=== PATIENT | female | born 1940 | race Caucasian/White ===

== ENCOUNTER 2018-12-22 11:38 | Day surgery (SDC) | payer MEDICARE, OTHER ==
[~2018-12-22] VITALS: Ht 167.6 cm; Wt 64.4 kg
[~2018-12-22 11:38] MED LIST: ADULT LOW DOSE81 MG PO; ATENOLOL25 MG PO; LISINOPRIL5 MG PO; METOPROLOL SUCC25 MG PO
[2018-12-22] MEDS ORDERED: CALCIUM + D SO1 EACH PO (11:59)
--- NOTE | 2018-12-22 14:35 | NUR ---
12/22/18 1435 Richelle London 1425- PT ARRIVES TO PACU AROUSABLE TO VOICE. RESP EVEN AND UNLABORED. OXYGEN SAT HIGH 90'S TO 100% ON 6L VIA MASK. 1426- OXYGEN TITRATED OFF. 1432- PT ROLLS HERSELF TO HER BACK. TOLERATED WELL.
--- NOTE | 2018-12-23 14:56 | PATH ---
[facility] [address] [place], [place] [address] Signed SPECIMEN(S): A RIGHT COLON SPECIMEN(S): B HEPATIC FLEXURE SPECIMEN(S): C SIGMOID POLYPS SPECIMEN SOURCE: A. RIGHT COLON B. HEPATIC FLEXURE C. SIGMOID POLYPS CLINICAL HISTORY: Known hemorrhoidal disease. Polyps 2006. MICROSCOPIC DESCRIPTION: Histologic sections of all submitted blocks are examined by light microscopy. These findings, together with the gross examination, support the pathologic diagnosis. FINAL PATHOLOGIC DIAGNOSIS: A. Mucosa, right colon, biopsy: - Tubular adenoma. B. Mucosa, colon, hepatic flexure, biopsy: - Tubular adenoma. C. Mucosa, sigmoid colon, biopsy: - Hyperplastic polyp. LJA:cml:C2NR GROSS DESCRIPTION: Three specimens are received in three containers, labeled "DB." A. The specimen, labeled "DB, right colon," is received in formalin and consists of three horowitz-white soft tissue fragments each measuring 0.2 cm in greatest dimension. The specimen is entirely submitted in cassette (A1). B. The specimen, labeled "DB, hepatic flexure polyp," is received in formalin and consists of a 0.3 cm in greatest dimension irregular horowitz-white soft tissue fragment. The specimen is entirely submitted in cassette (B1). C. The specimen, labeled "DB, sigmoid polyps," is received in formalin and consists of three horowitz-white soft tissue fragments each measuring 0.2 cm in greatest dimension. The specimen is entirely submitted in cassette (C1). AR (under the direct supervision of a pathologist) PATIENT NAME: KAMILLE AVELAR PATHOLOGY DATE OF : 44 REPORT #: [id number] PHYSICIAN: RAFAL DARDEN PCP: SOTO CARRASCO DO REPORT IS CONFIDENTIAL AND NOT TO BE RELEASED WITHOUT AUTHORIZATION [facility] [address] [place] [address] Signed The Gross Description was prepared using a voice recognition system. The report was reviewed for accuracy; however, sound-alike word errors, addition and/or deletions may occur. If there is any question about this report, please contact Client Services. PERFORMING LABORATORY: The technical component [place] [address] (Computational Theory Scientist: Madhuri Pandey MD; CLIA# [id number]). [facility], [address] [place] [address] (Computational Theory Scientist: Gordy Walters MD; CLIA# [id number]). Diagnostician: Gordy Walters MD Pathologist Electronically Signed 12/23/2018 Copies: ~ PATIENT NAME: KAMILLE AVELAR PATHOLOGY DATE OF : 44 REPORT #: [id number] PHYSICIAN: RAFAL DARDEN PCP: SOTO CARRASCO DO REPORT IS CONFIDENTIAL AND NOT TO BE RELEASED WITHOUT AUTHORIZATION
--- NOTE | 2018-12-23 21:38 | OR ---
[facility] [address] [place], [place] [address] Signed DATE OF OPERATION: 12/22/2018 SURGEON: Grace Duarte MD PREOPERATIVE DIAGNOSIS: Surveillance colonoscopy. POSTOPERATIVE DIAGNOSES: 1. Sigmoid and left-sided diverticula. 2. Polyp of proximal ascending colon (excised). 3. Three hyperplastic polyps of rectosigmoid (excised). 4. Internal hemorrhoids. PROCEDURE PERFORMED: Total colonoscopy to cecum with cold morcellation polypectomy x4. ANESTHESIA: Intravenous sedation, propofol infusion; Zuri Moctezuma CRNA. INDICATIONS: This 78-year-old white woman is a patient of Dr. Artur Carrasco, who has undergone colonoscopy in the past. She underwent colonoscopy in 2006. At which time, it was found that she was relatively resistant to sedation. Polypectomy has been performed in the past. She underwent surveillance colonoscopy in 2013 with propofol infusional technique, which was well tolerated. She was admitted at this time to undergo surveillance colonoscopy. She currently has no symptoms of bleeding, diarrhea, or constipation. She has no family history of colon cancer. She was admitted to undergo colonoscopy understanding the risks of bleeding, infection, and perforation. FINDINGS: The prep was excellent. Complete colonoscopy was undertaken of the cecum. Good and safe sedation were accomplished. Digital rectal examination was found to be normal. There were diverticula scattered through the sigmoid and left colon. There was an adenomatous somewhat flat polyp noted in the proximal ascending colon, which was excised with cold morcellation technique. There were three hyperplastic polyps of the rectosigmoid. Retroflexed view confirmed internal hemorrhoids that were not bleeding. DESCRIPTION OF PROCEDURE: The patient was brought to the endoscopy suite and placed in lateral decubitus position given intravenous sedation to the point of slurred speech and nystagmus. Digital rectal Electronically Signed By: GRACE DUARTE MD 12/23/18 2138 PATIENT NAME: KAMILLE AVELAR OPERATIVE REPORT DATE OF : 44 REPORT #: [id number] PHYSICIAN: GRACE DUARTE MD PCP: ARTUR CARRASCO DO REPORT IS CONFIDENTIAL AND NOT TO BE RELEASED WITHOUT AUTHORIZATION [facility] [address] [place], [place] [address] Signed examination was normal. An Olympus video colonoscope was passed in the rectum and manipulated throughout the colon noting diverticular change of the sigmoid and left colon. The scope was passed ultimately to the hepatic flexure and with abdominal wall stabilization and various maneuvers, the scope was ultimately advanced to the cecum itself. The cecum was normal. Scope was carefully withdrawn and the proximal ascending colon just above the cecum, there was a small flat 8 mm polyp, most likely adenomatous. This was photographed and excised with cold morcellation technique. The scope was further withdrawn and diverticula once again demonstrated. At the rectosigmoid, there were three small hyperplastic polyps. Narrow band imaging confirmed this to be likely. They were excised with cold morcellation technique. Retroflexed view of the rectum showed internal hemorrhoidal changes. Scope was removed and the patient taken to recovery room in good condition. CONCLUDING DIAGNOSES: 1. Polyps x4. 2. Diverticulosis. 3. Internal hemorrhoids. PLAN: Recommend repeat colonoscopy in 3 years if polyp excised was adenoma. If not, then 5 years would be certainly adequate or sooner if symptoms should occur. MD DWAYNE Stover/MODL /[id number] cc: Artur Carrasco DO Copies: ARTUR CARRASCO DO ~ Electronically Signed By: GRACE DUARTE MD 12/23/18 2138 PATIENT NAME: KAMILLE AVELAR OPERATIVE REPORT DATE OF : 44 REPORT #: [id number] PHYSICIAN: GRACE DUARTE MD PCP: ARTUR CARRASCO DO REPORT IS CONFIDENTIAL AND NOT TO BE RELEASED WITHOUT AUTHORIZATION
== END 2018-12-22 15:10 | disposition home or self-care (01) ==
LOC: OPS 11:38 → DS 11:42 → OPS 13:00
PROVIDERS: Surgery
PROC: 0DBF8ZZ Excision of Right Large Intestine, Via Natural or Artificial Opening Endoscopic (ICD-10-PCS; 2018-12-22)
PROC: 0DBN8ZZ Excision of Sigmoid Colon, Via Natural or Artificial Opening Endoscopic (ICD-10-PCS; 2018-12-22)
PROC: 0DBL8ZZ Excision of Transverse Colon, Via Natural or Artificial Opening Endoscopic (ICD-10-PCS; principal; 2018-12-22 13:00)
DX: Z12.11 Encounter for screening for malignant neoplasm of colon (principal); D12.2 Benign neoplasm of ascending colon; D12.3 Benign neoplasm of transverse colon; K57.30 Diverticulosis of large intestine without perforation or abscess without bleeding; K63.5 Polyp of colon; K64.8 Other hemorrhoids; I10 Essential (primary) hypertension; Z98.890 Other specified postprocedural states; Z85.89 Personal history of malignant neoplasm of other organs and systems; Z79.899 Other long term (current) drug therapy
CPT/HCPCS: J2250; J2704; J3010; J7120

== ENCOUNTER 2025-01-05 08:08 | Day surgery (SDC) | payer MEDICARE, OTHER ==
[~2025-01-05] VITALS: Ht 167.6 cm; Wt 64.1 kg
[~2025-01-05 08:08] MED LIST changes: +CALCIUM + D SO1 EACH PO; +CEFAZOLIN SODIUM 2 GM in SODIUM CHLORIDE 0.9% 100 ML IV SCH; +CELECOXIB100 MG PO; +EYE HEALTH ARE1 EACH PO; +IBLOOD GLUCOSE TEST STRIP 1 EA TEST VI PRN; +LACTATED RINGER'S 1,000 ML IV SCH; +LIDOCAINE HCL 1% 5 ML SDV INJ ONE; +MIDAZOLAM HCL 5 MG/5 ML VIAL IV PRN; +fentaNYL citrate 100 MCG/2 ML VIAL IV PRN
[2025-01-05 08:31] VITALS: BP 144/71
[2025-01-05] MEDS ORDERED: MIDAZOLAM HCL 5 MG/5 ML VIAL ONE (08:54)
[2025-01-05] MEDS ORDERED: fentaNYL citrate 100 MCG/2 ML VIAL ONE (08:54)
[2025-01-05] MEDS ORDERED: LIDOCAINE HCL 2% 5 ML SDV ONE (09:15)
[2025-01-05 10:40] VITALS: BP 138/70
--- NOTE | 2025-01-05 11:17 | NUR ---
01/05/25 1117 Aisha Darling 1001- PT ARRIVES TO PACU. BREATHING IS EVEN AND UNLABORED. PT IS REACTIVE TO VERBAL STIMULI. MONITORS PUT IN PLACE. LR INFUSING. ABDOMEN IS SOFT AND NON DISTENDED. PT HAS A NATURAL AIRWAY. BEDSIDE REPORT RECIEVED. 1008-PT WAKES TO VERBAL STIMULI AND TALKING WITH RN. PT IS ORIENTED TO PACU. ALL QUESTIONS AND CONCERNS ANSWERED. PT DENIES PAIN AND NAUSEA. 1030- PT CONTINUES TO DENY PAIN AND NAUSEA. PT REPEATING QUESTIONS. ALL QUESTIONS AND CONCERNS ANSWERED. 1040- PT IS SITTING UP AT THE SIDE OF THE BED AND DENIES NAUSEA. PT GETTING DRESSED INDEPENDENTLY WITH NO ISSUES. 1056- ALL DISCHARGE PAPERWORK GONE OVER. QUESTIONS AND CONCERNS ANSWERED. PT IS DRESSED WITH NO ISSUES. IV REMOVED. PT HAS ALL BELONGINGS. PT IS ABLE TO TRANSFER TO HOSPITAL WHEELCHAIR WITH A STEADY AND EVEN GAIT. PT IS WHEELED OUT OF PACU BY VOLUNTEER AT THIS TIME.
--- NOTE | 2025-01-06 16:22 | OR ---
[facility] [place] [facility] [address] [place], [place] [address] Signed DATE OF OPERATION: 01/05/2025 SURGEON: Grace Duarte MD PREOPERATIVE DIAGNOSIS: History of polyps 2019 (tubular adenoma). POSTOPERATIVE DIAGNOSES: 1. Redundant colon. 2. Pandiverticulosis. 3. Small polyps x6. PROCEDURE: Total colonoscopy to cecum with cold morcellation polypectomy x6. ANESTHESIA: Intravenous sedation, propofol infusion, Carmel Perez CRNA. INDICATION: This 84-year-old white woman is a patient of Dr. Artur Carrasco and underwent colonoscopy by me in 2019, at which time she was found to have two tubular adenomas. Surveillance colonoscopy was recommended for five years. She has no current symptoms of bleeding, diarrhea, or constipation. Review of chart notes confirmed she had a very redundant colon and would likely require propofol for sedation. She does have family history of colon cancer in her maternal grandmother she thinks. She understands risk of bleeding, infection, and perforation related to colonoscopy and wished to proceed at this time. FINDINGS: The prep was excellent. Complete colonoscopy was undertaken of the cecum. Passage of the scope was challenging on the basis of a very long colon and redundant colon. Numerous diverticula were seen throughout the colon. There were four small polyps of the rectosigmoid and two of the sigmoid, all of which may be adenomatous, but more likely hyperplastic. They were all excised. There were no other findings of note. DESCRIPTION OF PROCEDURE: The patient was brought to the endoscopy suite and placed in lateral decubitus position, given intravenous sedation to the point of slurred speech and nystagmus. Digital rectal examination was normal. An Olympus video colonoscope was passed in the rectum and manipulated into the sigmoid. Electronically Signed By: GRACE DUARTE MD 01/06/25 1622 PATIENT NAME: KAMILLE AVELAR OPERATIVE REPORT DATE OF : 44 REPORT #: [id number] PHYSICIAN: GRACE DUARTE MD PCP: ARTUR CARRASCO DO REPORT IS CONFIDENTIAL AND NOT TO BE RELEASED WITHOUT AUTHORIZATION [facility] [place] [facility] [address] [place], [place] [address] Signed Redundancy and so forth of the sigmoid made passage through this area rather time-consuming and lengthy, but it was accomplished safely and once beyond the sigmoid, passage to the cecum itself was accomplished without much more problem. Abdominal wall stabilization was required. Intubation of the cecum showed no sign of abnormality there. The scope was then withdrawn, and numerous diverticula were seen upon withdrawal of the scope. In the sigmoid were two small polyps, probably hyperplastic, both excised with cold morcellation technique. Additional polyps were noted in the distal sigmoid and ultimately in the rectosigmoid where four additional polyps were taken. Retroflexed view of the rectum was normal. Scope was removed. The patient was taken to recovery room in good condition. CONCLUDING DIAGNOSIS: Multiple polyps, diverticulosis. PLAN: Recommend repeat colonoscopy in 10 years (if clinically appropriate). Recommend a high-fiber diet. MD DWAYNE Stover/MANOJ /[id number] cc: Artur Carrasco DO Copies: ARTUR CARRASCO DO ~ Electronically Signed By: GRACE DUARTE MD 01/06/25 1622 PATIENT NAME: KAMILLE AVELAR AGATA OPERATIVE REPORT DATE OF : 44 REPORT #: [id number] PHYSICIAN: GRACE DUARTE MD PCP: ARTUR CARRASCO DO REPORT IS CONFIDENTIAL AND NOT TO BE RELEASED WITHOUT AUTHORIZATION
--- NOTE | 2025-01-09 12:08 | PATH ---
[facility] [address] [place], [place] [address] Signed SPECIMEN(S): A SIGMOID POLYPS SPECIMEN(S): B SIGMOID POLYP SPECIMEN(S): C RECTOSIGMOID POLYPS SPECIMEN SOURCE: A. SIGMOID POLYPS B. SIGMOID POLYP C. RECTOSIGMOID POLYPS CLINICAL HISTORY: History of polyps. Postop, multiple polyps, diverticulosis. FINAL PATHOLOGIC DIAGNOSIS: A. Sigmoid polyps: - Hyperplastic polyps (two fragments). B. Sigmoid polyp: - Hyperplastic polyp (two fragments). C. Rectosigmoid polyps: - Hyperplastic polyps (three fragments). JVR:carol MICROSCOPIC EXAMINATION: Histologic sections of all submitted blocks are examined by light microscopy. These findings, together with the gross examination, support the pathologic diagnosis. GROSS DESCRIPTION: A. The specimen, labeled and designated "Travis, D, 1.," and designated on the requisition "sigmoid polypectomy x 2," is received in formalin and consists of one horowitz soft tissue fragment that is 0.4 cm in greatest dimension. The specimen is entirely submitted in (A1). B. The specimen, labeled and designated "Travis, D, 2." and designated on the requisition "sigmoid polypectomy x 3," is received in formalin and consists of two horowitz soft tissue fragments that measure each 0.3 cm in greatest dimension. The specimen is entirely submitted in (B1). C. The specimen, labeled and designated "Travis, D, 3." and designated on the requisition "sigmoid polypectomy x 4," is received in formalin and consists of three horowitz soft tissue fragments that measure 0.2-0.3 cm in greatest dimension. The specimen is entirely submitted in (C1). FB (under the direct supervision of a pathologist) PATIENT NAME: KAMILLE AVELAR PATHOLOGY DATE OF : 44 REPORT #: [id number] PHYSICIAN: RAFAL DARDEN PCP: SOTO CARRASCO DO REPORT IS CONFIDENTIAL AND NOT TO BE RELEASED WITHOUT AUTHORIZATION [facility] [address] [place], [place] [address] Signed The Gross Description was prepared using a voice recognition system. The report was reviewed for accuracy; however, sound-alike word errors, addition and/or deletions may occur. If there is any question about this report, please contact Client Services. PERFORMING LABORATORY: Technical component was performed by [employer], [address] [place] [id number] (CLIA# [id number]). Professional interpretation was performed by [facility], [address] [place] [id number] (CLIA#: [id number]). Diagnostician: Christo Rosenberg MD Pathologist Electronically Signed 01/09/2025 Copies: ~ PATIENT NAME: KAMILLE AVELAR PATHOLOGY DATE OF : 44 REPORT #: [id number] PHYSICIAN: RAFAL DARDEN PCP: SOTO CARRASCO DO REPORT IS CONFIDENTIAL AND NOT TO BE RELEASED WITHOUT AUTHORIZATION
== END 2025-01-05 10:50 | disposition home or self-care (01) ==
LOC: DS 08:08
PROVIDERS: ATTEND Surgery
PROC: 0DBN8ZX Excision of Sigmoid Colon, Via Natural or Artificial Opening Endoscopic, Diagnostic (ICD-10-PCS; principal; 2025-01-05 09:00)
DX: Z12.11 Encounter for screening for malignant neoplasm of colon (principal); K63.5 Polyp of colon; K63.89 Other specified diseases of intestine; I10 Essential (primary) hypertension; K57.30 Diverticulosis of large intestine without perforation or abscess without bleeding; Z86.0101 Personal history of adenomatous and serrated colon polyps; Z80.0 Family history of malignant neoplasm of digestive organs
CPT/HCPCS: 00811; 88305; 99153; G0500; J0688; J2003; J2250; J2704; J3010; J7121